=== PATIENT | female | born 2000 | race Caucasian/White ===

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

== ENCOUNTER → 2025-09-04 | Outpatient (CLI) | payer BC, SELFPAY ==
--- NOTE | 2025-09-04 17:48 | RAD_ITS ---
PROCEDURE: RAD/Lumbar Spine 2 or 3 Views
== END | disposition home or self-care (01) ==
LOC: RAD 17:39
PROVIDERS: PCP Physician Assistant; Referring Provider Anesthesiology Pain Medicine; Visit Provider Anesthesiology Pain Medicine
DX: M47.819 Spondylosis without myelopathy or radiculopathy, site unspecified (principal)
CPT/HCPCS: 72100